=== PATIENT | female | born 1955 | race Caucasian/White ===

== ENCOUNTER 2019-01-06 11:41 | Emergency (ER) | payer BC ==
[2019-01-06] MEDS ORDERED: Meclizine 25 MG Tab PO ONE (12:37)
--- NOTE | 2019-01-06 12:37 | EDM.PDOC ---
ED HPI GENERAL MEDICAL PROBLEM - General Chief Complaint: Cardiovascular Problem Stated Complaint: NAUSA DIZZY VOMITING Time Seen by Provider: 01/06/19 12:25 Source of Information: Reports: Patient History Limitations: Reports: Other (no old records) - History of Present Illness INITIAL COMMENTS - FREE TEXT/NARRATIVE: 63 yo female here after abrupt onset of vertigo with nausea and one episode of vomiting. Is feeling better on arrival. Her BP is running higher than normal. Has not missed any of her BP meds. Has a hx of motion sickness. Onset: Today Onset Date: 01/06/19 Onset Time: 11:00 Duration: Minutes:, Resolved Prior to Arrival Location: Reports: Head Quality: Reports: Other (no pain) Severity: Severe Improves with: Reports: Other (time) Worsens with: Reports: Other (unknown) Context: Reports: Other (see HPI) Associated Symptoms: Reports: Diaphoresis, Nausea/Vomiting. 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) - Related Data Allergies Allergy/AdvReac Type Severity Reaction Status Date / Time acetaminophen [From Tylenol] Allergy Difficulty Verified 01/06/19 11:59 Breathing aspirin Allergy Difficulty Verified 01/06/19 11:59 Breathing ibuprofen Allergy Difficulty Verified 01/06/19 11:59 Breathing Home Meds: Home Meds Meclizine [Antivert] 25 mg PO Q6H PRN #30 tab.chew 01/06/19 [Rx] Metoprolol Tartrate 25 mg PO DAILY 01/06/19 [History] Past Medical History HEENT History: Reports: Impaired Vision Cardiovascular History: Reports: Hypertension Respiratory History: Reports: Other (See Below) Other Respiratory History: nasal surgery 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: - Past Surgical History Head Surgeries/Procedures: Reports: None HEENT Surgical History: Reports: None Cardiovascular Surgical History: Reports: None Respiratory Surgical History: Reports: None Dermatological Surgical History: Reports: None Social & Family History - Tobacco Use Smoking Status *Q: Never Smoker Second Hand Smoke Exposure: No - Caffeine Use Caffeine Use: Reports: Coffee, Soda - Recreational Drug Use Recreational Drug Use: No ED ROS GENERAL - Review of Systems Review Of Systems: See Below Constitutional: Reports: No Symptoms HEENT: Reports: No Symptoms Respiratory: Reports: No Symptoms Cardiovascular: Reports: No Symptoms GI/Abdominal: Reports: Nausea, Vomiting (x one) : Reports: No Symptoms Musculoskeletal: Reports: No Symptoms Skin: Reports: Diaphoresis (now resolved) Neurological: Reports: Dizziness (vertigo) Psychiatric: Reports: No Symptoms ED EXAM, GENERAL - Physical Exam Exam: See Below Exam Limited By: No Limitations General Appearance: Alert, WD/WN, No Apparent Distress Eye Exam: Left Eye: Nystagmus (mild nystagmus on left zazueta gaze), Bilateral Eye : Normal Inspection, PERRL Ears: Normal External Exam, Normal Canal, Hearing Grossly Normal, Normal TMs Ear Exam: Bilateral Ear: Auricle Normal, Canal Normal, TM normal Nose: Normal Inspection, No Blood Throat/Mouth: Normal Inspection, Normal Lips, Normal Oropharynx, Normal Voice, No Airway Compromise Head: Atraumatic, Normocephalic Neck: Normal Inspection Respiratory/Chest: No Respiratory Distress, Lungs Clear, Normal Breath Sounds, No Accessory Muscle Use Cardiovascular: Regular Rate, Rhythm, No Edema GI/Abdominal: Normal Bowel Sounds, Soft, Non-Tender, No Distention Back Exam: Normal Inspection. No: CVA Tenderness (R), CVA Tenderness (L) Extremities: Normal Inspection, Normal Range of Motion, Non-Tender, No Pedal Edema Neurological: Alert, Oriented, CN II-XII Intact, Normal Cognition, No Motor/ Sensory Deficits Psychiatric: Normal Affect, Normal Mood Skin Exam: Warm, Dry, Intact, Normal Color, No Rash Course - Vital Signs Last Recorded V/S: Last Vital Signs Temp 36.1 C 01/06/19 12:03 Pulse 70 01/06/19 12:08 Resp 16 01/06/19 12:08 BP 176/98 H 01/06/19 12:46 Pulse Ox 99 01/06/19 12:08 - Orders/Labs/Meds Meds: Medications Discontinued Medications Generic Name Dose Route Start Last Admin Trade Name Freq PRN Reason Stop Dose Admin Meclizine HCl 25 mg 01/06/19 12:37 01/06/19 12:45 Antivert PO 01/06/19 12:38 25 mg ONETIME ONE Administration Departure - Departure Time of Disposition: 13:12 Disposition: Home, Self-Care 01 Condition: Fair Clinical Impression: BPV (benign positional vertigo) Qualifiers: Laterality: left Qualified Code(s): H81.12 - Benign paroxysmal vertigo, left ear HTN (hypertension) Qualifiers: Hypertension type: essential hypertension Qualified Code(s): I10 - Essential ( primary) hypertension Prescriptions: Meclizine [Antivert] 25 mg PO Q6H PRN #30 tab.chew PRN Reason: Dizziness Instructions: Vertigo, [id number], Preventing Hypertension, Hypertension, [id number] Referrals: PCP,None [Primary Care Provider] - Forms: ED Department Discharge Additional Instructions: Take meclizine as needed for vertigo symptoms. Have your BP rechecked within week due to your abnormally high BP today. Don't miss any doses of your BP meds. Avoid salt or salty foods. Take your metoprolol 25 mg every 12 hrs.
== END 2019-01-06 13:23 | disposition home or self-care (01) ==
LOC: JP.ED 11:41
DX: H81.12 Benign paroxysmal vertigo, left ear (principal); I10 Essential (primary) hypertension; Z88.6 Allergy status to analgesic agent; Z88.8 Allergy status to other drugs, medicaments and biological substances
CPT/HCPCS: 99283; A9270